=== PATIENT | female | born 1990 | race Caucasian/White ===

== ENCOUNTER 2017-12-24 06:43 | Inpatient (IN) ==
[2017-12-24] MEDS ORDERED: Famotidine 20 MG/2 ML VIAL IVP PRN (06:52)
[2017-12-24] MEDS ORDERED: Metoclopramide 10 MG/2 ML VIAL IVP PRN (06:52)
[2017-12-24] MEDS ORDERED: Naloxone 0.4 MG/ML INJ IVP PRN (06:52)
[2017-12-24] MEDS ORDERED: Ondansetron 4 MG/2 ML VIAL IVP PRN (06:52)
--- NOTE | 2017-12-24 07:13 | OB/GYN History & Physical ---
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 Cuevas is a 27 year old female 001 and estimated date of of 01/16/18 at 36 weeks 5 days gestation dated by LMP. She presents with reports of leaking fluid with rupture membranes that started about 6 this morning when she was laying in bed. She denies contractions and vaginal bleeding and reports positive movement her course has been complicated by her obesity. She received care mostly from Dr. Schaefer. records are available in her chart and have been reviewed. Labs: O+ GBS unknown Hep B- HIV negative T. Palladium negative GC/CL negative Rubella immune Varicella immune Past Med Surg Social Fam HX - Family History Father Living Status: Still Living Hx Family Cardiac Disorders: Yes (htn) Hx Family Respiratory Disorders: No Hx Family Cancer: No Hx Family GI Disorders: No Hx Family Genitourinary Disorders: No Hx Family Endocrine Disorder: No Hx Family Musculoskeletal Disorders: No Hx Family Neuromuscular Disorders: No Hx Family Neurologic Disorders: No Hx Family HEENT Disorders: No Hx Family Autoimmune Disorders: No Hx Family Reproductive Disorders: No Hx Family Psychosocial Disorders: No Hx Family Medical Disorders: No Obstetrical History - Pregnancies : 2 Para: 1 Term: 1 (1: [birth year]2011 38w , normal spontaneous vaginal delivery (), ? Shoulder dystocia,female, 7lbs 12oz, "[place]" born in [place]) : 0 Ab's: 0 Livin Review of System OB All systems PM: reviewed and no additional remarkable complaints except as stated Exam - Constitutional Constitutional: well developed, well nourished, no acute distress, morbidly obese - HEENT HEENT: Normocephaly, Mucus Membranes Moist - Neck Neck exam: full ROM - Lungs Respiratory exam: CTAB - Cardiovascular Cardiovascular exam: RRR, +S1, +S2 - Breasts Breast: bilateral: normal - Abdomen Abdomen: Present: bowel sounds normal, gravid, non tender - Extremities Extremities exam: normal capillary refill, normal inspection, radial pulses palpable and symmetrical - Vulva Vulva: bilateral: normal - Vagina Vagina: Present: normal moisture, discharge - Cervix Cervix: Present: discharge Dilation: 1 Effacement: 40 Station: -2 - Uterus Uterus exam: Present: normal size, normal contour - Adnexa Adnexa: bilateral: normal - Anus/Rectum Anus/Rectum: Present: normal perianal skin Results All other labs normal. - VTE Reasons for not Prescribing Prophylaxis: Treatment not Indicated - Low risk for VTE
[2017-12-24] MEDS ORDERED: Penicillin G Potassium 5,000,000 UNIT in 0.9 % Sodium Chloride Mini Bag 100 ML IVPB ONE (07:22)
[2017-12-24 07:39] LABS: Basophils # 0.1 K/mcL (0.0-0.2); Basophils % 0.5 %; Eosinophils # 0.1 K/mcL (0.0-0.6); Eosinophils % 0.8 %; Hematocrit 32.7 % (35.3-44.9); Hemoglobin 11.1 g/dL (11.5-15.4); Immature Granulocytes % 1.9 % (0-4); Lymphocytes # 1.4 K/mcL (0.6-4.6); Lymphocytes % 13.3 %; Mean Corpuscular HGB Conc 33.9 g/dL (31.6-35.5); Mean Corpuscular Hemoglobin 29.4 pg (28.0-33.3); Mean Corpuscular Volume 86.7 fL (83.0-100.0); Mean Platelet Volume 9.8 fL (9.4-12.4); Monocytes # 0.5 K/mcL (0.0-1.3); Monocytes % 4.6 %; Neutrophils # 8.5 K/mcL (1.6-8.9); Platelet Count 227 K/mcL (140-400); Red Blood Count 3.77 M/mcL (3.82-4.97); Red Cell Distribution Width 14.9 % (11.5-14.5); Segmented Neutrophils % 78.9 %
[2017-12-24] MEDS: Ringers Solution, Lactated 1,000 ML IVC SCH ×2 (08:16→23:57)
[2017-12-24 10:06] LABS: Amphetamine Screen,Urine Negative ng/mL (Cutoff=1000); Barbiturate Screen,Urine Negative ng/mL (Cutoff=200); Benzodiazepines Screen,Urine Negative ng/mL (Cutoff=200); Cannabinoid Screen,Urine Negative ng/mL (Cutoff = 50); Cocaine Screen,Urine Negative ng/mL (Cutoff= 300); Opiate Screen,Urine Negative ng/mL (Cutoff=300); Phencyclidine Screen,Urine Negative ng/mL (Cutoff=25)
[2017-12-24] MEDS ORDERED: miSOPROStol 100 MCG TABLET PO STA (12:11)
--- NOTE | 2017-12-24 12:14 | OB Labor Progress Note ---
Date of Encounter: 12/24/17 Time of Encounter: 12:12 Labor Progress Note - Subjective Subjective: Patient doing well. Denies any pain at this time. Discussed POC with patient. Patient denies any questions or concerns. - Cervix Cervix: 3/70/-1 - Heart Tones Heart Tones: 135 bpm moderate variability +15x15 accels no decels noted. Cat. 1 tracing - [place]: irregular contractions - Interventions Interventions: SVE, discussed POC - Plan Plan: Will start cytotec 50mcg PO
[2017-12-24] MEDS: Penicillin G Potassium 2,500,000 UNIT in 0.9 % Sodium Chloride 100 ML IVPB SCH ×3 (12:15→21:42)
--- NOTE | 2017-12-24 16:35 | OB Labor Progress Note ---
Date of Encounter: 12/24/17 Time of Encounter: 16:32 Labor Progress Note - Subjective Subjective: Patient resting in bed. Discussed POC with patient. Patient denies any questions or concerns. - Cervix Cervix: 4/80/-1 - Heart Tones Heart Tones: 130 bpm moderate variability - [place]: 2-4 min apart - Interventions Interventions: SVE - Plan Plan: Will start Pitocin
[2017-12-24] MEDS ORDERED: Oxytocin 20 units/ LR 1000 mL 20 UNIT/1,000 ML BAG IVC SCH (16:45)
--- NOTE | 2017-12-24 18:15 | OB Labor Progress Note ---
Date of Encounter: 12/24/17 Time of Encounter: 18:14 Labor Progress Note - Subjective Subjective: Patient resting on left side. Patient reports contractions are getting stronger. - Cervix Cervix: 4/90/-1 - Heart Tones Heart Tones: 125 bpm moderate variability - [place]: irregular - Interventions Interventions: SVE, IUPC placed without difficulty. Patient tolerated well. - Plan Plan: continue labor management
[2017-12-24] MEDS: *HR* Nalbuphine 10 MG/ML AMPUL IVP PRN ×2 (21:38→23:57)
[2017-12-25] MEDS ORDERED: *HR* FentaNYL (PF) 100 MCG/2 ML VIAL EP ONE (00:49)
[2017-12-25] MEDS ORDERED: Bupivacaine-MPF 0.25% 10 ML VIAL EP ONE (00:49)
[2017-12-25] MEDS ORDERED: Lidocaine -MPF 2% 5 ML VIAL ONE (00:51)
[2017-12-25] MEDS ORDERED: Bupivacaine-MPF 0.25% 10 ML VIAL ONE (00:52)
[2017-12-25] MEDS ORDERED: Epidural Premix (fent/bupiv) 110 ML EP SCH (01:00)
--- NOTE | 2017-12-25 01:24 | OB/GYN Procedure Note ---
Delivery - Delivery Date: 12/25/17 Provider: Florence Abdalla Intrapartum events: none Delivery induction: oxytocin, misoprostol Delivery monitor: external FHT, internal uterine Anesthesia: local (for repair only) Quantitated Blood Loss: 100 - (s) Infant A Infant Delivery Date: 12/25/17 Infant Delivery Time: 00:58 Presentation: vertex Position: KATELYN Route of delivery: Gender: Male Viability: Viable Pounds: 7 Ounces: 8 at 1 minute: 7 at 5 mins: 8 Shoulder Dystocia: not encountered Specimens collected: cord blood Placenta: spontaneous Cord: nuchal cord (x1), 3 umbilical vessels, nuchal reduced - Repair Episiotomy: none Laceration Description: Perineal - 1st Degree (repaired with 3-0 vicryl) - Complications Delivery complications: none Delivery comments: Called to LDR patient complete and up in stirrups pushing with contractions. Under maternal effort patient spontaneously delivered a viable male infant over a 1st degree perineal laceration. A nuchal was noted and easily reduced, no meconium or should dystocia was noted. Infant was placed on maternal abdomen. Cord was clamped and cut after pulsations ceased. 1% lidocaine was used to anesthetize site for repair. 3-O vicryl was used for repair. Patient tolerated well. Placenta delivered spontaneously and intact. All counts correct. remains skin to skin for recovery. Both Mother and infant stable for 2 hour recovery. - Disposition Mom disposition: stable in LDR [place] disposition: stable in LDR
[2017-12-25] MEDS ORDERED: Acetaminophen 325 MG TABLET PO PRN (03:10)
[2017-12-25] MEDS ORDERED: Oxytocin 20 units/ LR 1000 mL 20 UNIT/1,000 ML BAG IVC SCH (03:10)
[2017-12-25] MEDS ORDERED: Measles/Mumps/Rubella Vacc 0.5 ML VIAL SQ PRN (03:10)
[2017-12-25] MEDS ORDERED: *HR* HYDROcodone/Acet 5/325 mg TABLET PO PRN (03:10)
[2017-12-25] MEDS: Prenatal Vit/FA 1 EACH TABLET PO SCH (07:30)
[2017-12-25] MEDS: Ibuprofen 600 MG TABLET PO PRN ×2 (07:30→20:20)
[2017-12-25] MEDS: Lanolin 7 G OINT...G. TP PRN ×2 (07:36→20:19)
[2017-12-25] MEDS: Benzocaine/Menthol 56 GM AEROSOL SPRAY TP PRN ×2 (07:36→20:19)
[2017-12-26 08:17] VITALS: BP 112/75
[2017-12-26] MEDS: Prenatal Vit/FA 1 EACH TABLET PO SCH (10:47)
[2017-12-26] MEDS: Ibuprofen 600 MG TABLET PO PRN (10:47)
--- NOTE | 2017-12-26 11:32 | Discharge Summary ---
Date of Encounter: 12/26/17 Time of Encounter: 11:29 - Discharge Diagnosis (1) Vaginal delivery Priority: Primary Status: Acute Comments: Meeting all PP milestones, pain well managed, bleeding minimal, bottle feeding, desires discharge. - Discharge Medications Home Medications: Acetaminophen [Tylenol] 650 mg PO Q6HR PRN tablet 12/26/17 [Rx] Benzocaine/Menthol [place] [Dermoplast [place]] 1 appl TP QID PRN aerosol 12/26/17 [Rx] Docusate [Colace] 100 mg PO BID capsule 12/26/17 [Rx] Ibuprofen [Motrin] 600 mg PO Q6HR PRN tablet 12/26/17 [Rx] Vit/FA 1 each PO DAILY tablet 12/26/17 [Rx] Allergies/Adverse Reactions: 3 Allergy/AdvReac Type Severity Reaction Status Date / Time No Known Allergies Allergy Verified 12/25/17 10:06 Data Procedures and tests throughout hospitalization: Laboratory Tests 12/24/17 12/24/17 12/24/17 07:22 07:22 08:42 WBC 10.8 RBC 3.77 L Hgb 11.1 L Hct 32.7 L MCV 86.7 MCH 29.4 MCHC 33.9 RDW 14.9 H Plt Count 227 MPV 9.8 Immature Gran % 1.9 Seg Neutrophils % 78.9 Lymphocytes % 13.3 Monocytes % 4.6 Eosinophils % 0.8 Basophils % 0.5 Neutrophils # 8.5 Lymphocytes # 1.4 Monocytes # 0.5 Eosinophils # 0.1 Basophils # 0.1 Urine Opiates Screen Negative Ur Barbiturates Screen Negative Ur Phencyclidine Scrn Negative Ur Amphetamines Screen Negative U Benzodiazepines Scrn Negative Urine Cocaine Screen Negative U Marijuana (THC) Screen Negative Blood Type O POSITIVE Date of admission: 12/24/17 06:43 Primary care physician: PCP NONE Consults: 12/25/17 03:10 Consult to [employer] [CONS] Routine Comment: Vaginal delivery, consult needed Discharging clinician: Shiela Kwan Anticipated date of discharge: 12/26/17 - Patient Status Disposition: Home, Self-Care Condition: Good Functional capacity at discharge: independent ambulation Overall status at discharge: patient is back to baseline - Discharge Instructions Follow Up With: NONE,PCP [Primary Care Provider] - Judy Schaefer MD [Partnered Physician] - - Diet and Activity Activity: resume usual activities as tolerated Diet: regular diet Hospital Course Reason for admission: induction of labor, IUP at term Delivery: Episiotomy: none Laceration: 1st degree Other procedures: none complications: none Discharge diagnosis: IUP at term delivered baby: male Hospital course: Delivery - Delivery Date: 12/25/17 Provider: Florence Abdalla Intrapartum events: none Delivery induction: oxytocin, misoprostol Delivery monitor: external FHT, internal uterine Anesthesia: local (for repair only) Quantitated Blood Loss: 100 - (s) Infant A Infant Delivery Date: 12/25/17 Infant Delivery Time: 00:58 Presentation: vertex Position: KATELYN Route of delivery: Gender: Male Viability: Viable Pounds: 7 Ounces: 8 at 1 minute: 7 at 5 mins: 8 Shoulder Dystocia: not encountered Specimens collected: cord blood Placenta: spontaneous Cord: nuchal cord (x1), 3 umbilical vessels, nuchal reduced - Repair Episiotomy: none Laceration Description: Perineal - 1st Degree (repaired with 3-0 vicryl) - Complications Delivery complications: none Delivery comments: Called to LDR patient complete and up in stirrups pushing with contractions. Under maternal effort patient spontaneously delivered a viable male infant over a 1st degree perineal laceration. A nuchal was noted and easily reduced, no meconium or should dystocia was noted. was placed on maternal abdomen. Cord was clamped and cut after pulsations ceased. 1% lidocaine was used to anesthetize site for repair. 3-O vicryl was used for repair. Patient tolerated well. Placenta delivered spontaneously and intact. All counts correct. Infant remains skin to skin for recovery. Both Mother and infant stable for 2 hour recovery. - Disposition Mom disposition: stable inPP and appropriate for discharge Time Attestation: Total time spent providing and/or coordinating discharge services: Time Spent: Less than 30 minutes Exam - Constitutional Vitals: Temp Pulse Resp BP Pulse Ox 97.6 F 58 16 112/75 96 12/26/17 07:40 12/26/17 07:40 12/26/17 09:49 12/26/17 07:40 12/26/17 07:40 General appearance IM: A&O X 3 - Respiratory Respiratory exam: Present: CTAB - Cardiovascular Cardiovascular exam IM: Present: RRR - GI/Abdominal GI/Abdominal exam IM: soft Incision: normal - Uterine Tone: Firm Uterus Position: At Umbilicus - Extremities Exam Extremities exam IM: Present: normal capillary refill, normal inspection - Neurological Exam Neurological exam: normal gait, oriented X3 - Psychiatric Additional comments: Reports good mood
== END 2017-12-26 12:32 | disposition home or self-care (01) | DRG 560 ==
LOC: 1NENULAB 06:43 → 1NENUOBS 12-25 04:00
PROVIDERS: ADMIT Student in an Organized Health Care Education/Training Program; ATTEND Student in an Organized Health Care Education/Training Program